=== PATIENT | male | born 1980 | race Caucasian/White ===

== ENCOUNTER 2023-05-09 08:50 | Emergency (ER) | payer OTHER, SELFPAY ==
[2023-05-09 08:57] VITALS: BP 194/124; PULSE 83; RESP 18; TEMP 36.8; O2SAT 100
--- NOTE | 2023-05-09 09:15 | DI.MRI_ITS ---
Exam(s) MR LUMBAR SPINE WO EXAM: MR LUMBAR SPINE WO CLINICAL HISTORY: low back pain eval for cauda equina. TECHNIQUE: Multiplanar multisequence MRI of the Lumbar spine was performed. COMPARISON: No exams were available for comparison FINDINGS: Bones: The last intervertebral disc space is designated the L5/S1 level for the numbering purpose of this examination. The vertebral body heights are well maintained. Alignment is satisfactory. The si gnal characteristics are unremarkable. Cord: The conus tip ends at the T12 level. It is of normal size and signal intensity. T12-L1: No disc herniations or bulges are present. No central spinal canal or neural foraminal stenos is. L1-2: No disc herniations or bulges are present. No central spinal canal or neural foraminal stenosis . L2-3: No disc herniations or bulges are present. No central spinal canal or neural foraminal stenosis . L3-4: There is a mild diffuse disc bulge which does extend into the neural foramen bilaterally. No s ignificant central spinal canal stenosis is seen. There is mild narrowing of the neural foramen bila terally. L4-5: No disc herniations or bulges are present. No central spinal canal or neural foraminal stenosis . L5-S1: No disc herniations or bulges are present. No central spinal canal or neural foraminal stenosi s. Soft tissues: The visualized SI joints and sacrum are well maintained. The paraspinal soft tissues ar e unremarkable. IMPRESSION: 1. Mild diffuse disc bulge at L3-L4 causing mild bilateral neural foraminal narrowing. 2. Findings were discussed with Dr. Orozco at 12:06 p.m. on 05/09/2023. DATA REPOSITORY:
[2023-05-09] MEDS: Pregabalin 100 MG CAP PO (09:30)
[2023-05-09] MEDS: Acetaminophen 500 MG TAB 1000 MG PO (09:30)
[2023-05-09] MEDS: Methocarbamol 500 MG TAB 1000 MG PO (09:30)
--- NOTE | 2023-05-09 09:47 | ED.GENADUL_ITS ---
HPI General Stated Complaint: Nk/Back Pain ZHANNA: 4 Date/Time Provider Initiated Documentation: 05/09/23 09:25. Limitations to Documentation: no limitations. Information obtained by: patient. HPI Narrative: 42-year-old gentleman without significant past medical history presents for evaluation of 1 week of progressively worsening back pain. Reports onset of symptoms while at work. Denies any heavy lifting or injury, but was leaning over a machine working. He reports pain localized to the left lower back. It has been progressively worsening. It radiates around to the front of his hip and down his leg. It is associated with numbness in his lower leg. He reports that this is new over the last couple of days. Symptoms resolve if he brings his toe back towards his face. He has difficulty walking secondary to the pain. Not relieved with any medications taken at home reports that he has been having diarrhea, but no incontinence of bowel or bladder. No fevers. No history of cancer, back surgery or IV drug use. Related Data Home Medications Medication Instructions Recorded Confirmed lisdexamfetamine 50 mg capsule 50 mg PO DAILY 05/09/23 05/09/23 (Vyvanse) meloxicam 7.5 mg tablet 7.5 mg PO DAILY #20 tabs 05/09/23 methocarbamol 750 mg tablet 750 mg PO TID #30 tabs 05/09/23 methylprednisolone 4 mg tablets in See Rx Instructions PO .COMPLEX 05/09/23 a dose pack (Medrol (Davide)) #21 dose pk sertraline 50 mg tablet (Zoloft) 50 mg PO DAILY 05/09/23 05/09/23 Previous Rx's Medication Instructions Recorded meloxicam 7.5 mg tablet 7.5 mg PO DAILY #20 tabs 05/09/23 methocarbamol 750 mg tablet 750 mg PO TID #30 tabs 05/09/23 methylprednisolone 4 mg tablets in See Rx Instructions PO .COMPLEX 05/09/23 a dose pack (Medrol (Davide)) #21 dose pk Allergies Allergy/AdvReac Type Severity Reaction Status Date / Time varenicline [From Chantix] AdvReac Unverified 05/09/23 09:03 PFSH All Active Problems (Updated 05/09/23 @ 12:53 by Shelley Orozco MD) Sciatic leg pain (Acute) Elevated BP without diagnosis of hypertension (Acute) Social History Smoking/Tobacco Use Status: Current-Occasional Smoking risk assessment performed?: Yes Alcohol Intake: current Alcohol Intake frequency: other Substance use type: does not use Details: 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 Reported he Was sober for 5 days had alcohol drink last night. Gibson,RN 05/09/22 PAWSS Have you Been Recently Intoxicated or Drunk Within the Last 30 days?: Yes Have you Ever Experienced Previous Episodes of Alcohol Withdrawal?: Yes Have you ever Experienced Withdrawal Seizures?: No Have you ever Experienced Delirium Tremens(DT)s?: Yes Have you ever undergone Alcohol Rehabilitation Treatment (i.e, inpt ot outpatient treatment programs)?: Yes Have you ever Experienced Blackouts?: Yes Have you ever Combined Alcohol with other Downers within the last 90 days?: No Have you ever Combined Alcohol with any other Substance of Abuse during the last 90 days?: No Result: 5 Exam Narrative Exam Narrative: Review of Systems: All systems reviewed & are unremarkable except as noted in HPI and below Well-developed, no acute distress NACT PERRL, normal conjunctiva RRR Unlabored respiratory effort Nondistended abdomen no tenderness No midline back tenderness, step-off or deformity Extremities w/o deformity, no cyanosis, no edema No rashes or lesions. Paresthesia to the lower left leg, 4-5 strength of the left lower extremity Course Vital Signs Vital signs: Vital Signs Temperature 36.8 C 05/09/23 08:57 Pulse 83 05/09/23 08:57 Respiratory Rate 18 05/09/23 08:57 Blood Pressure 194/124 H 05/09/23 08:57 Pulse Oximetry 100 05/09/23 08:57 Temperature 36.8 C 05/09/23 08:57 Temperature Source Temporal Artery Scan 05/09/23 08:57 Pulse 83 05/09/23 08:57 Respiratory Rate 18 05/09/23 08:57 Respiratory Effort Normal, Non-Labored 05/09/23 09:05 Blood Pressure 194/124 H 05/09/23 08:57 Pulse Oximetry 100 05/09/23 08:57 Oxygen Delivery Method Room Air 05/09/23 08:57 Oxygen Flow Rate 0 05/09/23 08:57 Pain Level 10 05/09/23 08:57 Medical Decision Making Emergent evaluation of low back pain. Symptoms began a week ago. Not trauma related. No other red flags for epidural abscess. Consider sciatica versus spinal cord compression. He is having some concerning symptoms of developing neurologic dysfunction. I doubt his diarrhea is associated. I will get MRI to evaluate lumbar spine. Medication for symptom relief. Will reassess. Medications given in the emergency department which did improve his symptoms slightly. Will discharge with Medrol Dosepak as well as other medications. Lumbar spine MRI reviewed and discussed with radiologist, no signs of acute cauda equina. Recommend follow-up with PCP as well for the patient's blood pressure which has been elevated. No history of hypertension or medications taken. Recommend following up for the symptoms. Return precautions advised. Discharged in good condition. Medical Records Medical records reviewed: Yes I reviewed the patient's medical records. Quality:[facility] Health Related Social Needs: No Data to Display Discharge Plan Disposition Patient Disposition: Home Discharge Details Clinical Impression: Elevated BP without diagnosis of hypertension, Sciatic leg pain Primary Care Provider: Unknown,Unknown ED Provider: Shelley Orozco Home Meds and New Rx's Prescriptions: New methylprednisolone [Medrol (Davide)] 4 mg tablets,dose pack See Rx Instructions .ROUTE .COMPLEX Qty: 21 0RF Rx Instructions: orally per package directions meloxicam 7.5 mg tablet 7.5 mg PO DAILY Qty: 20 0RF Rx Instructions: WITH FOOD DO NOT TAKE WITH OTHER NSAIDS methocarbamol 750 mg tablet 750 mg PO TID Qty: 30 0RF No Action sertraline [Zoloft] 50 mg tablet 50 mg PO DAILY lisdexamfetamine [Vyvanse] 50 mg capsule 50 mg PO DAILY Discharge Instructions Instructions: Sciatica (ED) Additional Instructions: Follow-up with your primary care provider if your symptoms are not improving. Continue stretching and gentle range of motion exercises and light exercise. Take medications as prescribed. If you have any weakness, severe pain or bowel or bladder incontinence, please return to the emergency department. Your blood pressure was elevated here today. Please follow-up with your primary care doctor for reevaluation of elevated blood pressure.
[2023-05-09 11:46] VITALS: BP 189/102; PULSE 63; O2SAT 98
[2023-05-09] MEDS: Ketorolac 10 MG TAB PO (12:16)
[2023-05-09] MEDS: diazePAM 5 MG TAB 10 MG PO (12:16)
== END 2023-05-09 13:38 | disposition home or self-care (01) ==
PROVIDERS: Emergency Provider Emergency Medicine
DX: M54.42 Lumbago with sciatica, left side (principal); R03.0 Elevated blood-pressure reading, without diagnosis of hypertension; F17.210 Nicotine dependence, cigarettes, uncomplicated
CPT/HCPCS: 99283; 72148